=== PATIENT | female | born 1985 | race Caucasian/White ===

== ENCOUNTER 2018-01-10 12:17 | Emergency (ER) | payer OTHER, MEDICAID ==
[~2018-01-10] VITALS: Ht 160 cm; Wt 86.2 kg
[~2018-01-10 12:17] MED LIST: FLEXERIL PO; HYDROCODONE-AP1 EAC6 PO; IBUPROFEN 800800 M1 PO; IRON325 PO; LASIX 20 MG TAB20 MG PO; ZOFRAN ODT4 MG PO
[2018-01-10] MEDS ORDERED: VOLTAREN GEL 1100 G2 TOP (14:23)
[2018-01-10] MEDS ORDERED: IBUPROFEN 600600 M1 PO (14:23)
[2018-01-10] MEDS ORDERED: FLEXERIL PO (14:23)
[2018-01-10] MEDS ORDERED: HYDROCODONE-AP1 EAC6 PO (14:23)
[2018-01-10 14:38] VITALS: BP 141/91
== END 2018-01-10 14:39 | disposition home or self-care (01) ==
LOC: M.ERS 12:17
DX: S20.211A Contusion of right front wall of thorax, initial encounter (principal); S30.0XXA Contusion of lower back and pelvis, initial encounter; F17.210 Nicotine dependence, cigarettes, uncomplicated; E66.01 Morbid (severe) obesity due to excess calories; Z68.33 Body mass index [BMI] 33.0-33.9, adult; Z90.49 Acquired absence of other specified parts of digestive tract; Z88.1 Allergy status to other antibiotic agents; W18.39XA Other fall on same level, initial encounter; Y93.89 Activity, other specified; Y92.89 Other specified places as the place of occurrence of the external cause; Y99.8 Other external cause status